=== PATIENT | female | born 1985 | race Caucasian/White ===

== ENCOUNTER 2021-08-12 00:20 | Emergency (ER) | payer OTHER, SELFPAY ==
[2021-08-12 00:42] VITALS: BP 125/80; PULSE 85; RESP 15; TEMP 36.6; O2SAT 99
--- NOTE | 2021-08-12 02:07 | ED.BACK ---
HPI - Back Pain/Injury General Chief Complaint: Back Pain/Injury Stated Complaint: back pain Time Seen by Provider: 08/12/21 01:42 Source: patient and RN notes reviewed Limitations: no limitations History of Present Illness HPI Narrative: 36-year-old female presented to the emergency department for evaluation of left lower back pain. Patient was shoveling snow during the day and had worsening left lower back pain. Patient states over the course of the day the pain is continued to worsen. Patient did take Tylenol for pain control. Patient denies any associated numbness or weakness. Patient denies any falls. Patient denies any previous history of back surgery. Related Data Allergies Allergy/AdvReac Type Severity Reaction Status Date / Time Penicillins Allergy Unknown Hives Verified 08/12/21 01:24 Review of Systems Review of Systems: CONSTITUTIONAL: Denies fever, chills, or sweats. EYES: Denies visual changes, redness, or discharge. ENT: Denies rhinorrhea, congestion, sore throat, or otalgia. CARDIOVASCULAR: Denies chest pain, palpitations, or edema. RESPIRATORY: Denies cough or dyspnea. GASTROINTESTINAL: Denies abdominal pain, nausea, vomiting, or diarrhea. GENITOURINARY: Denies dysuria or hematuria. SKIN: Denies rash or itching. MUSCULOSKELETAL: Left lower back pain that does radiate to the left buttock without radiating down the leg. Denies any focal numbness or weakness. NEUROLOGIC: Denies headache, numbness, or weakness. All systems reviewed & are unremarkable except as noted in HPI and below PMFSH Family History Family History (Updated 02/28/16 @ 10:09 by DOCTOR UNKNOWN) Grandparent Family history of Alzheimer's disease Malignant neoplasm of prostate Social History Social History Smoking status: Never smoker Alcohol intake: current Exam Narrative: APPEARANCE: Well appearing, no pain, no distress, well-nourished. HEAD: normocephalic, atraumatic. EYES: PERRLA/EOMI, conjunctivae clear. NECK: Supple. No adenopathy, no masses. RESPIRATORY: Airway patent, respirations nonlabored. Clear to auscultation bilaterally, no rales, rhonchi, wheezing. CARDIOVASCULAR: Regular rate and rhythm without murmurs rubs or gallops. ABDOMINAL: Soft, nontender, nondistended, normal bowel sounds MUSCULOSKELETAL: Left lower lumbar and paraspinal tenderness to palpation. No deformities no step-offs. Neurologically intact with no focal weakness NEURO: No paresthesias SKIN: Warm, dry. Normal Color Course Course Emergency Course: Patient was offered medications for pain control. Patient was also updated on the plan for treatment for home. Patient was encouraged with close follow-up with her primary care physician. Patient was also educated on reasons to return to the emergency department. All questions and concerns were addressed. Patient was in no distress at time of discharge from the emergency room Vital Signs Vital signs: Vital Signs Temperature 97.8 F 08/12/21 00:42 Pulse Rate 85 08/12/21 00:42 Respiratory Rate 15 08/12/21 00:42 Blood Pressure 125/80 08/12/21 00:42 Pulse Oximetry 99 08/12/21 00:42 Temperature 97.8 F 08/12/21 00:42 Pulse Rate 85 08/12/21 00:42 Respiratory Rate 15 08/12/21 00:42 Blood Pressure 125/80 08/12/21 00:42 Pulse Oximetry 99 08/12/21 00:42 Discharge Plan Discharge Clinical Impression: Strain of lumbar region Qualifiers: Encounter type: initial encounter Qualified Code(s): S39.012A - Strain of muscle, fascia and tendon of lower back, initial encounter Patient Disposition: Home, Self-Care Condition: Stable Instructions: Antibiotic Form, Acute Low Back Pain (ED), Lower Back Exercises (ED) Additional Instructions: Flexeril as directed for muscle spasm. Ibuprofen for pain control. Tylenol or [place] for additional pain control. Gentle stretches as directed. Avoid heavy lifting. If you have any worsening symptoms or if you have any questions or charis
[2021-08-12] MEDS: HYDROcodone/acetaminophen (*CRX) 5-325 MG TABLET 1 TAB PO (02:30)
[2021-08-12] MEDS: IBUPROFEN 400 MG TABLET PO (02:30)
[2021-08-12] MEDS: CYCLOBENZAPRINE HCL 10 MG TABLET PO (02:30)
== END 2021-08-12 02:35 | disposition home or self-care (01) ==
PROVIDERS: Emergency Provider Emergency Medicine; PCP Family Medicine
DX: S39.012A Strain of muscle, fascia and tendon of lower back, initial encounter (principal); X50.0XXA Overexertion from strenuous movement or load, initial encounter; Y93.H1 Activity, digging, shoveling and raking
CPT/HCPCS: 99283; A9270

== ENCOUNTER 2024-04-30 04:20 | Emergency (ER) | payer OTHER, SELFPAY ==
--- NOTE | ~2024-04-30 | XR_ITS ---
EXAMINATION: XR chest 1V portable DATE: 04/30/2024 05:11 INDICATION: Left rib pain. TECHNIQUE: A single frontal view of the chest was obtained. COMPARISON: None. FINDINGS: The lung volumes are small. There is no pneumonia, pleural effusion, or pneumothorax. The h eart size is normal. IMPRESSION: 1. No etiology for the patient's symptoms. Reviewed, dictated and finalized at location A.
[2024-04-30 04:32] VITALS: RESP 18; O2SAT 99
[2024-04-30] MEDS: ONDANSETRON INJ 4 MG/2 ML VIAL IV PUSH ×2 (05:12→06:49)
[2024-04-30] MEDS: MORPHINE SULFATE (*CRX) 4 MG/ML INJ IV PUSH (05:12)
--- NOTE | 2024-04-30 05:13 | ECG_ITS ---
Test Date: 2024-04-30 05:14:46 Measurements Intervals [place] Rate: 74 P: 17 OH: 133 QRS: 23 QRSD: 96 T: 16 QT: 402 QTc: 449 Interpretive Statements SINUS RHYTHM No previous ECG available for comparison Electronically Signed On 04-30-2024 09:43:53 CDT by Sudheer Molina M.D.
[2024-04-30 06:11] VITALS: BP 143/77; PULSE 99; RESP 18; O2SAT 99
--- NOTE | 2024-04-30 06:27 | ED.GENADULT ---
HPI - General Adult General Chief complaint: Unspecified Stated complaint: rib pain Time Seen by Provider: 04/30/24 04:22 History of Present Illness HPI narrative: Patient is a 39-year-old female who presents to the emergency department this morning complaining of left-sided rib pain. Patient states that she started to develop some left-sided rib pain a few days ago and went to a chiropractor who informed her that she may have broken a rib from coughing so much as she has recently recovered from an upper respiratory infection. Patient states that yesterday she was playing basketball and felt a pop on the left side and is unsure if she may have worsened whenever pain/rib fracture was on that side. Patient states that she has tried to take [id number] medications with minimal to no relief and states that the pain has prevented her from being able to sleep. She denies any additional chest pain otherwise and denies any shortness of breath or any additional symptoms or concerns at this time. Related Data Allergies Allergy/AdvReac Type Severity Reaction Status Date / Time Penicillins Allergy Unknown Hives Verified 04/30/24 04:24 Review of Systems Review of Systems: All systems are reviewed and are negative unless stated otherwise in the HPI. [facility] Family History Family History Grandparent Family history of Alzheimer's disease Malignant neoplasm of prostate Social History Social History Smoking status: Never smoker Alcohol intake: current Exam Narrative: General: Alert, awake, afebrile, in no acute distress. HEENT: PERRL, no rhinorrhea, no post nasal drip, oropharynx clear. Cardiovascular: Regular rate and rhythm, no murmurs, rubs or gallops, no peripheral edema. Respiratory: Clear to auscultation bilaterally, no tachypnea, no wheezing, no rhonchi, no rubs, no respiratory distress. Abdomen: Soft, nontender, nondistended, no rebound, no guarding, no peritoneal signs. Musculoskeletal: No joint swelling or deformity, normal muscle tone, tenderness palpation over the left lower ribcage. Skin: No rashes or petechia, no signs of infection. Neurological: Alert and oriented to person, place, and time. Follows all commands. No focal deficits, speech is clear and fluent. Course Vital Signs Vital signs: Vital Signs Respiratory Rate 18 04/30/24 04:32 Pulse Oximetry 99 04/30/24 04:32 Pulse Rate 99 04/30/24 06:11 Respiratory Rate 18 04/30/24 06:11 Blood Pressure 143/77 H 04/30/24 06:11 Pulse Oximetry 99 04/30/24 06:11 Medical Decision Making MDM Narrative Medical decision making narrative: The patient was evaluated by myself in the emergency department. History is obtained from patient who is an independent historian and physical exam was performed. External medical records were reviewed at this time. IV was established and pertinent tests were ordered. Patient was administered 4 mg of IV morphine for pain and 4 mg of IV Zofran for nausea. EKG was obtained and independently interpreted by me revealing normal sinus rhythm rate of 74 beats per minute, no no ST elevation or T-wave inversion, no evidence of acute ischemia. EKG is currently pending official cardiology read. Imaging studies obtained included CXR which was independently interpreted by me revealing no acute process, which is pending final radiology interpretation. Patient was informed of these findings at bedside. At this time I did recommend obtaining blood work and a CT of the patient's chest for further evaluation of what could be causing her pain, however, patient declined CT imaging and blood work stating that she just wants pain medications to go home on. Patient was informed that she will be provided with an incentive spirometer giving that the pain is preventing her from feeling as though she can not fully expand her lungs to prevent any lung collapse and patient is agreeable. Lidoderm patch was placed along the left lower ribcage where patient is most tender. Patient was administered 2nd dose of morphine 2 mg at this time per her request prior to discharge. Patient states that her son is picking her up. Differential diagnosis considerations include rib fractures, rib contusion, pulmonary emboli although unlikely given patient's clinical presentation and lack of shortness of breath and pulse ox of 99% on room air. All of these differentials were discussed with the patient at bedside who does not seem to be concerned about finding out what is causing her pain but rather what dose of narcotic she is going to be sent home on. Comorbidities impacting this visit include none. I have evaluated and discussed social determinants of health with the patient that could potentially impact subsequent diagnosis and treatment plans. On repeat assessment of the patient, reevaluation revealed that the patient is doing well and is in no acute distress. Patient symptoms have improved since she arrived to our emergency department. Repeat vital signs were all reviewed and noted to be stable. Differential diagnosis and treatment plan were discussed with the patient at bedside. Patient agrees with discussion and after shared medical decision making agrees with discharge. All questions were answered to the patient's satisfaction. Patient will follow up with her PCP in 3-5 days. Script for Lidoderm patches and [place] were sent to patient's pharmacy to use as needed for pain. She was provided with an incentive spirometer and instructed to use it to prevent any atelectasis or pneumonia from developing. Patient was provided with strict return precautions and instructed to return to the emergency department if any new or worsening symptoms develop. The patient was discharged in stable condition. Vital Signs Vital Signs: Vital Signs Respiratory Rate 18 04/30/24 04:32 Pulse Oximetry 99 04/30/24 04:32 Pulse Rate 99 04/30/24 06:11 Respiratory Rate 18 04/30/24 06:11 Blood Pressure 143/77 H 04/30/24 06:11 Pulse Oximetry 99 04/30/24 06:11 Discharge Plan Discharge Clinical Impression: Rib pain on left side Patient Disposition: Home, Self-Care Condition: Improved Instructions: Antibiotic Form, How to Use an Incentive Spirometer (ED), Rib Fracture (ED) Additional Instructions: Please use the incentive spirometer as instructed. Take the pain medications that were prescribed as needed. Return to the ED if any new or worsening symptoms develop. Prescriptions: New hydrocodone-acetaminophen 5-325 mg tablet 1 tablet PO Q8H PRN (Reason: pain) Qty: 10 0RF lidocaine [Lidoderm] 5 % adhesive patch,medicated 1 patch topical DAILY Qty: 15 0RF Rx Instructions: leave on most painful area for up to 12 hrs No Action cyclobenzaprine 10 mg tablet 10 mg PO BID PRN (Reason: muscle spasm) Qty: 10 0RF hydrocodone-acetaminophen 5-325 mg tablet 1 tablet PO Q6H PRN (Reason: pain) Qty: 7 0RF Follow-up/Referrals: PHYSICIAN,PAD MACHINE FEEDER [Primary Care Provider] - Dannie Stewart MD [Physician] - 3 Days Time of Disposition: 06:35
[2024-04-30] MEDS: MORPHINE SULFATE (*CRX) 4 MG/ML INJ 2 MG IV PUSH (06:49)
[2024-04-30] MEDS: LIDOCAINE 5% PATCH 1 PATCH TRANSDERM (06:49)
== END 2024-04-30 07:07 | disposition home or self-care (01) ==
PROVIDERS: Emergency Provider Emergency Medicine
DX: R07.81 Pleurodynia (principal)
CPT/HCPCS: 71045; 93005; 96374; 96375; 96376; 99284; A9270; J2270; J2405

== ENCOUNTER 2024-06-15 15:06 | Outpatient (CLI) | payer OTHER, SELFPAY ==
--- NOTE | ~2024-06-15 | XR_ITS ---
Lumbosacral Spine: AP and lateral views Clinical History: Pain Findings: The normal lordotic curve is maintained. The vertebral bodies and posterior elements are i ntact. There is moderate to advanced facet arthropathy from L4 through S1. There is mild degenerati ve disc narrowing throughout the lumbar spine. The sacroiliac joints are normally outlined. Impression: [id number] degenerative spondylosis, as above. Reviewed, dictated and finalized at location M. R GLUING OPERATOR Impression: [id number] degenerative spondylosis, as above.
--- NOTE | ~2024-06-15 | XR_ITS ---
Cervical Spine: AP, lateral, oblique, open-mouth views Clinical History: Pain Findings: There is mild reversal of the normal cervical lordosis. There is moderate to advanced degen erative disc narrowing at C5-C6 and C6-C7. There is minimal facet arthropathy.. Pre-vertebral soft ti ssues are unremarkable. Impression: Moderate degenerative change of the lower cervical spine, as above. Reviewed, dictated and finalized at location . ING MACHINE OPERATOR Impression: Moderate degenerative change of the lower cervical spine, as above.
== END 2024-06-15 15:07 | disposition home or self-care (01) ==
PROVIDERS: PCP Chiropractor; Visit Provider Chiropractor
DX: M47.816 Spondylosis without myelopathy or radiculopathy, lumbar region (principal); M50.322 Other cervical disc degeneration at C5-C6 level; M50.323 Other cervical disc degeneration at C6-C7 level
CPT/HCPCS: 72050; 72100